=== PATIENT | female | born 1990 | race Caucasian/White ===

== ENCOUNTER → 2017-06-28 | Outpatient (CLI) | payer OTHER ==
[2017-06-28 09:20] LABS: HEMATOCRIT 37.4 % (37.0-47.0); HEMOGLOBIN 12.3 g/dl (12.0-16.0); MEAN CELL VOLUME 91.9 fl (81.0-99.0); MEAN CORPUSCULAR HGB 30.2 pg (27.0-31.0); MEAN CORPUSCULAR HGB CONC 32.9 g/dl (33.0-37.0); MEAN PLATELET VOLUME 8.9 fl (9.6-12.3); RED BLOOD COUNT 4.07 10*6/uL (4.10-5.10); RED CELL DISTRI WIDTH 13.3 % (0-14.5); WHITE BLOOD COUNT 7.9 10*3/uL (4.8-10.8)
[2017-06-28 09:48] LABS: ALBUMIN 3.2 gm/dl (3.1-4.5); ALKALINE PHOSPHATASE 50 U/L (45-117); BUN 8 mg/dl (7-24); CHLORIDE 105 mmol/L (98-107); CREATININE 0.47 mg/dL (0.55-1.02); POTASSIUM 3.9 mmol/L (3.5-5.1); SGOT/AST 10 IU/L (3-35); SGPT/ALT 24 U/L (12-78); SODIUM 138 mmol/L (136-145); TOTAL PROTEIN 7.4 gm/dL (6.4-8.2)
== END | disposition home or self-care (01) ==
LOC: LAB 08:09
PROVIDERS: Family Medicine
DX: Z32.01 Encounter for pregnancy test, result positive (principal)

== ENCOUNTER → 2017-06-30 | Outpatient (CLI) | payer OTHER | END | disposition home or self-care (01) | LOC: LAB 08:48 | DX: Z32.01 Encounter for pregnancy test, result positive (principal) ==

== ENCOUNTER → 2017-07-11 | Outpatient (CLI) | payer OTHER | END | disposition home or self-care (01) | LOC: US 07:30 | DX: O26.891 Other specified pregnancy related conditions, first trimester (principal); R10.2 Pelvic and perineal pain; M54.5 Low back pain; Z3A.11 11 weeks gestation of pregnancy ==

== ENCOUNTER → 2019-06-21 | Outpatient (CLI) | payer OTHER ==
[2019-06-21 08:16] LABS: HEMATOCRIT 41.2 % (37.0-47.0); HEMOGLOBIN 13.2 g/dl (12.0-16.0); MEAN CELL VOLUME 93.8 fl (81.0-99.0); MEAN CORPUSCULAR HGB 30.1 pg (27.0-31.0); MEAN PLATELET VOLUME 8.8 fl (9.6-12.3); RED BLOOD COUNT 4.39 10*6/uL (4.10-5.10); WHITE BLOOD COUNT 7.2 10*3/uL (4.8-10.8)
[2019-06-21 09:05] LABS: CHLORIDE 107 mmol/L (98-107); POTASSIUM 4.2 mmol/L (3.5-5.1); SODIUM 139 mmol/L (136-145)
[2019-06-21 09:11] LABS: ALBUMIN 3.3 gm/dl (3.1-4.5); ALKALINE PHOSPHATASE 54 U/L (45-117); BUN 14 mg/dl (7-24); CHOLESTEROL 165 mg/dL (<200); CREATININE 0.54 mg/dL (0.55-1.02); HDL CHOLESTEROL 51 mg/dl (40-60); LDL CHOLESTEROL 65 mg/dL (9-159); SGOT/AST 17 IU/L (3-35); SGPT/ALT 25 U/L (12-78); TOTAL PROTEIN 7.4 gm/dL (6.4-8.2); TRIGLYCERIDES 245 mg/dl (<150); VLDL CHOLESTEROL 49 mg/dL (6-40)
== END | disposition home or self-care (01) ==
LOC: LAB 07:50
PROVIDERS: Family Medicine
DX: E55.9 Vitamin D deficiency, unspecified (principal); R53.83 Other fatigue

== ENCOUNTER → 2020-09-25 | Outpatient (CLI) | payer OTHER ==
[2020-09-25 08:41] LABS: HEMATOCRIT 41.1 % (37.0-47.0); MEAN CELL VOLUME 93.4 fl (81.0-99.0); MEAN CORPUSCULAR HGB 30.2 pg (27.0-31.0); MEAN CORPUSCULAR HGB CONC 32.4 g/dl (33.0-37.0); MEAN PLATELET VOLUME 9.1 fl (9.6-12.3); RED BLOOD COUNT 4.4 10*6/uL (4.10-5.10); RED CELL DISTRI WIDTH 12.8 % (0-14.5); WHITE BLOOD COUNT 8.2 10*3/uL (4.8-10.8)
[2020-09-25 08:57] LABS: ALBUMIN 3.5 gm/dl (3.1-4.5); BUN 11 mg/dl (7-24); CHLORIDE 107 mmol/L (98-107); POTASSIUM 3.7 mmol/L (3.5-5.1); SODIUM 139 mmol/L (136-145)
[2020-09-25 09:02] LABS: ALKALINE PHOSPHATASE 68 U/L (45-117); CHOLESTEROL 165 mg/dL (<200); HDL CHOLESTEROL 53 mg/dl (40-60); LDL CHOLESTEROL 62 mg/dL (9-159); SGOT/AST 11 IU/L (3-35); SGPT/ALT 23 U/L (12-78); TOTAL PROTEIN 7.8 gm/dL (6.4-8.2); TRIGLYCERIDES 250 mg/dl (<150); VLDL CHOLESTEROL 50 mg/dL (6-40)
[2020-09-25 09:35] LABS: VITAMIN D, 25-HYDROXY 30.1 ng/mL (30-100)
== END | disposition home or self-care (01) ==
LOC: LAB 08:19
PROVIDERS: ATTEND Family Medicine
DX: E55.9 Vitamin D deficiency, unspecified (principal); E78.00 Pure hypercholesterolemia, unspecified; D64.9 Anemia, unspecified; N92.0 Excessive and frequent menstruation with regular cycle

== ENCOUNTER → 2021-11-28 | Outpatient (CLI) | payer OTHER ==
[2021-11-28 09:05] LABS: HEMATOCRIT 41.4 % (37.0-47.0); MEAN CELL VOLUME 90.8 fl (81.0-99.0); MEAN CORPUSCULAR HGB CONC 33.1 g/dl (33.0-37.0); MEAN PLATELET VOLUME 8.6 fl (9.6-12.3); RED BLOOD COUNT 4.56 10*6/uL (4.10-5.10); RED CELL DISTRI WIDTH 13.2 % (0-14.5); WHITE BLOOD COUNT 8.4 10*3/uL (4.8-10.8)
[2021-11-28 09:21] LABS: ALKALINE PHOSPHATASE 67 U/L (45-117); BUN 10 mg/dl (7-24); CHLORIDE 105 mmol/L (98-107); CHOLESTEROL 160 mg/dL (<200); CREATININE 0.52 mg/dL (0.55-1.02); POTASSIUM 4.1 mmol/L (3.5-5.1); SGOT/AST 19 IU/L (3-35); SGPT/ALT 32 U/L (12-78); SODIUM 136 mmol/L (136-145); TOTAL PROTEIN 7.9 gm/dL (6.4-8.2); TRIGLYCERIDES 206 mg/dl (<150)
[2021-11-28 09:23] LABS: LDL CHOLESTEROL 71 mg/dL (9-159)
== END | disposition home or self-care (01) ==
LOC: LAB 08:29
PROVIDERS: ATTEND Family Medicine
DX: Z00.00 Encounter for general adult medical examination without abnormal findings (principal); E55.9 Vitamin D deficiency, unspecified

== ENCOUNTER → 2024-06-28 | Outpatient (CLI) | payer OTHER ==
[2024-06-28 09:01] LABS: BASO % 0.1 % (0.0-1.0); EOS % 0.6 % (1.0-4.0); HEMATOCRIT 43.5 % (37.0-47.0); MEAN CELL VOLUME 90.6 fl (81.0-99.0); MEAN CORPUSCULAR HGB 29.6 pg (27.0-31.0); MEAN CORPUSCULAR HGB CONC 32.6 g/dl (33.0-37.0); MEAN PLATELET VOLUME 8.7 fl (9.6-12.3); MONO # 0.4 10*3/uL (0.1-1.0); MONO % 6.3 % (3.0-9.0); NEUT # 3.8 10*3/uL (2.3-7.9); NEUT % 55.9 % (47.0-73.0); PLATELET COUNT AUTOMATED 383 10*3/uL (130-400); WHITE BLOOD COUNT 6.8 10*3/uL (4.8-10.8)
[2024-06-28 09:26] LABS: ALKALINE PHOSPHATASE 71 U/L (46-116); BUN 9 mg/dl (9-23); CHLORIDE 104 mmol/L (98-107); CHOLESTEROL 215 mg/dL (<200); FREE T4 1.45 ng/dl (0.89-1.76); LDL CHOLESTEROL 123 mg/dL (9-159); POTASSIUM 3.8 mmol/L (3.4-5.1); SGPT/ALT 20 U/L (5-49); TOTAL PROTEIN 7.7 gm/dL (6.0-8.0); TRIGLYCERIDES 206 mg/dl (<150)
== END | disposition home or self-care (01) ==
LOC: LAB 08:31
PROVIDERS: ATTEND Nurse Practitioner Family
DX: Z13.220 Encounter for screening for lipoid disorders (principal); Z13.6 Encounter for screening for cardiovascular disorders; Z13.0 Encounter for screening for diseases of the blood and blood-forming organs and certain disorders involving the immune mechanism